=== PATIENT | male | born 1985 | race American Indian/Alaskan Native ===

== ENCOUNTER 2019-04-26 12:52 | Emergency (ER) | payer SELFPAY ==
[2019-04-26 13:07] VITALS: BP 143/78
--- NOTE | 2019-04-26 13:08 | Emergency Department Report ---
Chief Complaint: Urogenital-Male Stated Complaint: STD CHECK/BURNING SENSATION Time Seen by Provider: 04/26/19 13:03 - HPI History of Present Illness: Pt complains of penile discharge x this morning. He states he had some mild lower abdominal discomfort yesterday, but denies any currently. He also denies any N/V/D/constipation/hematochezia/melena Pt given community resources for treatment of his STI. Discussed signs and symptoms that should prompt him to seek immediate medical treatment-pt states understanding MSE screening note: Focused history and physical exam performed. Due to findings the following was ordered: Abdominal is soft, nontender, and nondistended ED Disposition for MSE Condition: Stable
== END 2019-04-26 15:00 | disposition home or self-care (01) ==
LOC: ED 12:52
DX: R36.9 Urethral discharge, unspecified (principal); Z53.21 Procedure and treatment not carried out due to patient leaving prior to being seen by health care provider